=== PATIENT | male | born 1985 | race Hispanic/Latino ===

== ENCOUNTER 2018-11-22 00:30 | Emergency (ER) | payer MEDICAID, OTHER ==
[2018-11-22] MEDS ORDERED: DIPHENHYDRAMINE HCL 25 MG CAPSULE ONE (01:15)
== END 2018-11-22 01:26 | disposition home or self-care (01) ==
LOC: EDH 00:30
DX: H10.9 Unspecified conjunctivitis (principal); Z90.49 Acquired absence of other specified parts of digestive tract
CPT/HCPCS: 99282; Q0163

== ENCOUNTER 2019-02-03 12:16 | Emergency (ER) | payer OTHER | END 2019-02-03 12:43 | disposition home or self-care (01) | LOC: EDH 12:16 | DX: H10.9 Unspecified conjunctivitis (principal) | CPT/HCPCS: 99281 ==

== ENCOUNTER 2024-08-25 21:10 | Emergency (ER) | payer SELFPAY ==
[~2024-08-25] VITALS: Ht 167.6 cm; Wt 56.7 kg
--- NOTE | 2024-08-25 21:10 | NUR ---
TRAUMA II ACTIVATED OVERHEAD
--- NOTE | 2024-08-25 21:11 | NUR ---
TRAUMA ACTIVATION CALLED DUE TO CONCEPT OF " OTHER" , LULY AND DISCRETION OF TRIAGE
--- NOTE | 2024-08-25 21:17 | NUR ---
[facility]
[2024-08-25 21:23] LABS: BASOPHILS # (AUTO) 0.09 K/uL (0.00-0.20); BASOPHILS % (AUTO) 0.8 % (0.0-5.0); EOSINOPHILS # (AUTO) 0.07 K/uL (0.00-0.70); EOSINOPHILS % (AUTO) 0.6 % (0.0-8.0); HEMATOCRIT 50.1 % (42-54); IMMATURE GRANULOCYTE ABSOLUTE 0.05 K/uL (0-1); LYMPHOCYTES # (AUTO) 2.1 K/uL (1.0-4.8); LYMPHOCYTES % (AUTO) 18.1 % (21.0-51.0); MEAN CORPUSCULAR HEMOGLOBIN 32.8 pg (27.0-33.0); MEAN CORPUSCULAR HGB CONC 34.1 g/dL (32.0-36.0); MEAN CORPUSCULAR VOLUME 96.2 fL (79-99); MONOCYTES # (AUTO) 0.7 K/uL (0.1-1.0); MONOCYTES % (AUTO) 5.8 % (3.0-13.0); NEUTROPHILS # (AUTO) 8.7 K/uL (1.8-7.7); NEUTROPHILS % (AUTO) 74.3 % (40.0-77.0); PLATELET COUNT (AUTO) 310 K/uL (130-400); RED BLOOD CELL COUNT(AUTO) 5.21 MIL/uL (4.50-6.20); RED CELL DISTRIBUTION WIDTH 12.3 % (11.0-15.5); WHITE BLOOD COUNT (AUTO) 11.7 K/uL (4.8-10.8)
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
[2024-08-25] MEDS: 0.9% NACL 500ML IV.SOLN 500 ML IV ONE (21:28)
[2024-08-25] MEDS: teTANUS/diphthERIA TOXOID [ADULT] 0.5 ML VIAL IM ONE (21:29)
[2024-08-25 21:35] LABS: CARBON DIOXIDE 29 mmol/L (21-32); CHLORIDE 98 mmol/L (101-111); CREATININE 1.2 mg/dL (0.5-1.3); GLOMERULAR FILTR. RATE CALC 79 mL/min (>90); GLUCOSE,RANDOM 119 mg/dL (70-105); POTASSIUM 3.2 mmol/L (3.5-5.1); SODIUM SERUM 135 mmol/L (136-145); UREA NITROGEN, BLOOD 7 mg/dL (7-18)
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
[2024-08-25 21:53] LABS: ALCOHOL, BLOOD < 3 mg/dL (0-10)
[2024-08-25] MEDS: ceFAZolin SODIUM 1 GM VIAL IVPB ONE (22:02)
[2024-08-25] MEDS: ketOROlac 15MG/ML VIAL (15MG/ML) IV ONE ×2 (22:03→23:03)
[2024-08-25] MEDS ORDERED: CEPH500T PO (22:05)
[2024-08-25] MEDS: PoTASSium BIcarbonate/CIT AC 25 MEQ TABLET.EFF PO ONE (23:02)
[2024-08-25 23:44] VITALS: BP 108/68; PULSE 82; RESP 18; TEMP 98.4; O2SAT 98
--- NOTE | 2024-08-25 23:44 | NUR ---
REFER TO RASHID CASTAÑEDAHEET
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
== END 2024-08-25 23:44 | disposition home or self-care (01) ==
LOC: EDH 21:10
DX: S91.301A Unspecified open wound, right foot, initial encounter (principal); Z79.899 Other long term (current) drug therapy; Z98.890 Other specified postprocedural states; W34.00XA Accidental discharge from unspecified firearms or gun, initial encounter; Y93.89 Activity, other specified; Y92.89 Other specified places as the place of occurrence of the external cause; Y99.8 Other external cause status
CPT/HCPCS: 99284; 96374; 71045; 96375; 80048; 85025; 36415; 90714; 73610; 73630; 96376; 90471; J1885 ×2; J7040; J0690

== ENCOUNTER 2024-10-03 19:06 | Emergency (ER) | payer SELFPAY ==
[~2024-10-03] VITALS: Ht 167.6 cm; Wt 54.4 kg
[~2024-10-03 19:06] MED LIST: CEPH500T PO
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
[2024-10-03] MEDS: cePHALexin 500 MG CAPSULE PO ONE (19:30)
[2024-10-03] MEDS: LIDOCAINE HCL 1% 20 ML VIAL INJ ONE (19:30)
[2024-10-03] MEDS: NEOMY SULF/BACITRA/POLYMYXIN B 1 EACH PACKET TP ONE (19:30)
[2024-10-03] MEDS: HYDROcodone/APAP 5/325 1 TAB TABLET PO ONE (19:31)
[2024-10-03] MEDS ORDERED: CEPH500T PO (20:51)
[2024-10-03] MEDS ORDERED: MUPI22O TP (20:51)
[2024-10-03] MEDS ORDERED: IBUP-2070 PO (20:51)
[2024-10-03 20:58] VITALS: BP 118/78; PULSE 70; RESP 14; TEMP 98.1; O2SAT 100
== END 2024-10-03 21:14 | disposition home or self-care (01) ==
LOC: EDH 19:06
DX: S61.512A Laceration without foreign body of left wrist, initial encounter (principal); R20.2 Paresthesia of skin; Z79.899 Other long term (current) drug therapy; Z98.890 Other specified postprocedural states; W31.89XA Contact with other specified machinery, initial encounter; Y93.89 Activity, other specified; Y92.89 Other specified places as the place of occurrence of the external cause; Y99.8 Other external cause status
CPT/HCPCS: 12002; 99284